=== PATIENT | female | born 2000 | race Hispanic/Latino ===

== ENCOUNTER 2018-02-28 13:49 | Emergency (ER) | payer OTHER | END 2018-02-28 14:49 | disposition home or self-care (01) | LOC: ERS 13:49 | DX: O99.619 Diseases of the digestive system complicating pregnancy, unspecified trimester (principal); K08.89 Other specified disorders of teeth and supporting structures; O99.340 Other mental disorders complicating pregnancy, unspecified trimester; F32.9 Major depressive disorder, single episode, unspecified; Z3A.00 Weeks of gestation of pregnancy not specified | CPT/HCPCS: 99282 ==

== ENCOUNTER 2018-08-29 06:51 | Inpatient (IN) | payer OTHER ==
[2018-08-29] MEDS ORDERED: Ondansetron PF 4 MG/2 ML Vial IVP PRN ×2 (08:24→12:45)
[2018-08-29] MEDS ORDERED: Promethazine HCl 25 MG/ML VIAL IM PRN ×2 (08:24→12:45)
[2018-08-29] MEDS ORDERED: Lidocaine 1% (PF) 30 ML VIAL SC PRN (08:24)
[2018-08-29] MEDS ORDERED: NS / Oxytocin 40 units/1000ml 1,000 ML IV PRN (08:24)
--- NOTE | 2018-08-29 08:36 | PDOC.FPRHP ---
- History of Present Illness Chief Complaint: Contractions History of Present Illness: This is a 17 yo G1 at 38.5 wks by 6wk US who presents to L&D with a cc of contractions. She states they started at 2300 last night and were initially weak and occurred every 15 minutes. At 0300 this AM pt reports contractions increased in pain and occurred at q6 minutes. She reports some increased discharge but no LOF. She denies vaginal bleeding, chest pain, changes in her vision, headaches, or nausea/vomiting. She reports FM. She reports 2 weeks ago she had an ultrasound that estimated the fetus at 9 lbs. - Allergies/Adverse Reactions Allergies Allergy/AdvReac Type Severity Reaction Status Date / Time No Known Allergies Allergy Unverified 08/29/18 07:27 - Home Medications Medication Instructions Recorded Confirmed Type hydrOXYzine [Atarax] 08/29/18 History - History PMHx: PSHx: FHx: Social: - Vital signs BP: [] HR: [] RR: [] Tmax: [] Pox: []% on [] Wt: [] FMR H&P: Upper Level - Plan Date/Time: 08/29/18 0831 I, [], have evaluated this patient and agree with findings/plan as outlined by internet marketing assistant resident. Pertinent changes/additions are listed here.
--- NOTE | 2018-08-29 08:38 | PDOC.FPROB ---
FMR OB H&P: HPI - History of Present Illness Chief Complaint: Contractions Indentification: 17 yo at 38.5 by 6wk US History of Present Illness: This is a 17 yo G1 at 38.5 wks by 6wk US who presents to L&D with a cc of contractions. She states they started at 2300 last night and were initially weak and occurred every 15 minutes. At 0300 this AM pt reports contractions increased in pain and occurred at q6 minutes. She reports some increased discharge but no LOF. She denies vaginal bleeding, chest pain, changes in her vision, headaches, or nausea/vomiting. She reports FM. She reports 2 weeks ago she had an ultrasound that estimated the fetus at 9 lbs. Primary Care Physician: Reuben Eddy DO FMR OB H&P: Current - Care : 1 Para: 0 Gestational age: 38.5 Due date: 09/07/18 Dating Criteria: 6wk US - OB Labs Blood type: unknown (EMR down, no printed records present) RH: unknown Antibody Screen: unknown HIV: unknown RPR: unknown HepBsAg: unknown Gonorrhea: unknown Chlamydia: unknown GBS: positive FMR OB H&P: History - Past Medical History PMH: Morbid obesity, BMI 52 - OB History OB History: none - CLOTH SHRINKING TESTER History CLOTH SHRINKING TESTER History: none - Surgical History Sx History: Tonsillectomy - Social History Social History: Denies CHAYO - Family History Family History: Noncontributory FMR OB H&P: Medications - Current Home Medications: Medication Instructions Recorded Confirmed Type hydrOXYzine [Atarax] 08/29/18 History Allergies/Adverse Reactions: Allergies Allergy/AdvReac Type Severity Reaction Status Date / Time No Known Allergies Allergy Unverified 08/29/18 07:27 FMR OB H&P: ROS - Review of Systems General: denies: fever/chills, weight/appetite/sleep changes Eyes: denies: eye pain, vision changes ENT: denies: nasal congestion, frequent nose bleed Cardiovascular: denies: chest pain, palpitation, claudication Gastrointestinal: denies: abdominal pain, indigestion, nausea, vomiting, diarrhea, constipation Genitourinary (Female): reports: vaginal discharge, vaginal pain, contractions, vaginal pressure. denies: dysuria, vaginal bleeding Musculoskeletal: denies: pain, stiffness, tenderness Neurologic: denies: numbness, syncope Integumentary: denies: itching, rash Hematologic/Lymphatic: denies: prolonged or excessive bleeding Psychological: denies: depression, anxiety FMR OB H&P: Vital Signs - Maternal Vital signs: Vital Signs - First Documented Temp Pulse Resp BP Pulse Ox 98.6 F 100 18 129/82 100 08/29/18 07:10 08/29/18 07:10 08/29/18 07:10 08/29/18 07:10 08/29/18 07:10 - Heart Tones Baseline: 120 Variability: moderate Acceleration: present Deceleration: absent Category: category 1 FMR OB H&P: Physical Exam - Physical Exam General: NAD, awake, alert and oriented Deviation from normal: Morbidly obese HEENT: normocephalic and atraumatic, MMM, grossly normal vision, TM's clear and intact, grossly normal hearing Neck: FROM, no JVD Chest: non-tender to palpation, no lesions Heart: RRR, normal S1/S2, no murmurs/rubs/gallops, pulses present, no edema General: CTAB, no respiratory distress, no wheezing, no retractions Abdomen: soft, gravid, non-tender, bowel sound present Musculoskeletal: normal gait and station, pulses present, FROM in all four extremities Neurological: cranial nerves II through XII intact, sensation to pain,touch and proprioception grossly normal Skin: good tugor, capillary refill <2 seconds Lymphatic: no unusual bruising or bleeding, no purpura Psychiatric: intact recent and remote memory, good judgement and insight, normal mood and affect - Pelvic Exam Vulva: normal hair distribution, appropriate thuy stage, no masses, no lesions , no discharge, no blood SVE: 2/50/-3 Grijalva score: 5 FMR OB H&P: A/P - Problem List (1) Term Current Visit: Yes Status: Acute Code(s): Z34.80 - ENCOUNTER FOR SUPRVSN OF NORMAL , UNSP TRIMESTER (2) Poor patient attendance of care Current Visit: Yes Status: Acute Code(s): O09.30 - SUPRVSN OF PREG W INSUFFICIENT ANTENAT CARE, UNSP TRIMESTER (3) Morbid obesity Current Visit: Yes Status: Acute Code(s): E66.01 - MORBID (SEVERE) OBESITY DUE TO EXCESS CALORIES (4) GBS (group B streptococcus) infection Current Visit: Yes Status: Acute Code(s): A49.1 - STREPTOCOCCAL INFECTION, UNSPECIFIED SITE Disposition: This is a 17 yo G1 at 38.5 wks by 6wk US who presents to L&D with a cc of contractions Term -Admit to L&D -LR 125ml/hr -Cat 1 strip, baseline 120s -SVE /-3 at 0820 -Continue monitoring -Pt desires epidural -PCP Dr. Eddy has been notified of pt and plan -Will recheck in 4 hours and assess for labor augmentation at that time -Will update chart when further records are available GBS positive -Starting penicillin prophylaxis Morbid obesity Poor care -Currently waiting on full records, none sent over and EMR down Discussion: Date/Time: 08/29/18 0837 This H&P was discussed with Dr. Nuñez who agree with the above documentation and plan. Signature: Augustin Caballero DO PGY-1
[2018-08-29 08:56] VITALS: BMI 51.8
[2018-08-29] MEDS ORDERED: Penicillin G Potassium 5 MILL.UNITS in Sodium Chloride 0.9% 100 ML IVPB SCH (09:00)
[2018-08-29] MEDS: Lactated Ringer's 1,000 ML IV SCH ×3 (09:11→23:37)
[2018-08-29 09:20] LABS: Hemoglobin 12.1 g/dL (12.0-16.0); Mean Corpuscular HGB CONC 32.3 g/dL (32.0-36.0); Mean Corpuscular Volume 77.4 fL (78.0-98.0); Mean Platelet Volume 8.6 fL (7.4-10.4); Platelet Count 240 thou/uL (130-400); RBC Distribution Width 14.3 % (11.5-14.5); Red Blood Cell (RBC) Count 4.84 mill/uL (4.00-5.20); White Blood Cell (WBC) Count 13.8 thou/uL (4.8-10.8)
[2018-08-29 09:59] LABS: Syphilis Antibody Nonreactive (Nonreactive); Syphilis Antibody Index 0.03 S/CO (<1.00 Non-Reactive)
[2018-08-29 10:00] LABS: HBSAg Index 0.22 S/CO (0-0.99); Hep B Surf Ag Non-Reactive S/CO (NonReactive)
--- NOTE | 2018-08-29 11:35 | PDOC.LDPN ---
Labor & Delivery Progress Note - Subjective Subjective: painful contractions - Objective Vital signs reviewed and normal: yes Abnormal vital signs: elevated BP during cxns, in between normal 135/86 General: breathing through contractions Dilation: 4 Effacement: 75% Station: -2 FHT: category 1 [place] contractions every: not visible on strip, per nurse q5 min Plan: pitocin for augmentation -: This is a 17 yo G1 at 38.5 wks by 6wk US who presents to L&D with a cc of contractions Term -LR 125ml/hr -Cat 1 strip, baseline 120s -SVE @ 0820: 2/50/-3 -SVE @ 1130: 4/70/-2, cxns q5min, epidural ordered -FHTs cat 1 -Continue monitoring -PCP Dr. Eddy has been notified of pt and plan -Will recheck in 4 hours and assess for labor augmentation at that time -Will update chart when further records are available GBS positive - First dose penicillin given Morbid obesity Poor care -Currently waiting on full records, none sent over and EMR down
[2018-08-29] MEDS ORDERED: Fentanyl 4 mcg/Bup 0.1% Cadd 100 ML ONE ×2 (11:52→20:49)
[2018-08-29] MEDS ORDERED: Naloxone HCl 0.4 mg/ml Vial IVP PRN ×2 (12:45)
[2018-08-29] MEDS ORDERED: ePHEDrine/0.9% NaCl/PF SYRINGE 50 mg/10 ml SLOW IVP PRN (12:45)
[2018-08-29] MEDS ORDERED: Acetaminophen 325 MG TAB PO PRN (12:45)
[2018-08-29] MEDS ORDERED: Eucerin (Mineral Oil/Petrolatum,White) 30 gm Jar TOP PRN (12:45)
[2018-08-29] MEDS ORDERED: Communication Order-Pharmacy FS SCH (12:45)
[2018-08-29] MEDS ORDERED: Lactated Ringer's 500 ML IV PRN (12:45)
[2018-08-29] MEDS ORDERED: Fentanyl 4 mcg/Bupivacaine 0.1% Cassette 100 ML EPIDURAL SCH (12:45)
[2018-08-29] MEDS ORDERED: diphenhydrAMINE 50 MG/ML VIAL IVP PRN (12:45)
[2018-08-29] MEDS: Penicillin G 2.5 MILL.units 2.5 MILL.UNITS in Premix Bag 1 BAG IVPB SCH ×3 (12:55→20:53)
--- NOTE | 2018-08-29 15:45 | PDOC.LDPN ---
Labor & Delivery Progress Note - Subjective Subjective: comfortable - Objective Vital signs reviewed and normal: yes General: NAD, resting Dilation: 5 Effacement: 75% Station: -2 FHT: category 1, variability present - Assessment (1) GBS (group B streptococcus) infection Code(s): A49.1 - STREPTOCOCCAL INFECTION, UNSPECIFIED SITE Current Visit: Yes Status: Acute (2) Morbid obesity Code(s): E66.01 - MORBID (SEVERE) OBESITY DUE TO EXCESS CALORIES Current Visit : Yes Status: Acute (3) Poor patient attendance of care Code(s): O09.30 - SUPRVSN OF PREG W INSUFFICIENT ANTENAT CARE, UNSP TRIMESTER Current Visit: Yes Status: Acute (4) Term Code(s): Z34.80 - ENCOUNTER FOR SUPRVSN OF NORMAL , UNSP TRIMESTER Current Visit: Yes Status: Acute Plan: labor augmentation, pitocin for augmentation -: This is a 17 yo G1 at 38.5 wks by 6wk US who presents to L&D with a cc of contractions Term -LR 125ml/hr -FHTs Cat 1 strip, baseline 120s -SVE @ 0820: 2/50/-3 -SVE @ 1130: 4/70/-2, cxns q5min, epidural placed -SVE @ 1300: 5/70/-2 -SVE @ 1530: 5/80/-2, cxns q5-6 min., started pitocin -Continue monitoring -PCP Dr. Eddy has been notified of pt and plan -Will recheck in 4 hours and assess for labor augmentation at that time -Will update chart when further records are available GBS positive - Second dose penicillin given Morbid obesity Poor care -Currently waiting on full records, none sent over and EMR down
[2018-08-29] MEDS ORDERED: NS w/ Oxytocin 10 units 500 ML ONE (16:16)
--- NOTE | 2018-08-29 17:27 | PDOC.LDPN ---
Labor & Delivery Progress Note - Subjective Subjective: comfortable - Objective Vital signs reviewed and normal: yes General: NAD, resting Uterine fundus: palpable contractions SVE: 5/80/-1 Dilation: 5 Effacement: 75% Station: -1 FHT: category 1, variability present [place] contractions every: 2-3 min Other exam findings: bulging bag - Assessment (1) GBS (group B streptococcus) infection Code(s): A49.1 - STREPTOCOCCAL INFECTION, UNSPECIFIED SITE Current Visit: Yes Status: Acute (2) Morbid obesity Code(s): E66.01 - MORBID (SEVERE) OBESITY DUE TO EXCESS CALORIES Current Visit : Yes Status: Acute (3) Poor patient attendance of care Code(s): O09.30 - SUPRVSN OF PREG W INSUFFICIENT ANTENAT CARE, UNSP TRIMESTER Current Visit: Yes Status: Acute (4) Term Code(s): Z34.80 - ENCOUNTER FOR SUPRVSN OF NORMAL , UNSP TRIMESTER Current Visit: Yes Status: Acute Plan: continue plan of care, pitocin for augmentation -: This is a 17 yo G1 at 38.5 wks by 6wk US who presents to L&D with a cc of contractions Term -LR 125ml/hr -FHTs Cat 1 strip, baseline 120s -SVE @ 0820: 2/50/-3 -SVE @ 1130: 4/70/-2, cxns q5min, epidural placed -SVE @ 1300: 5/70/-2 -SVE @ 1530: 5/80/-2, cxns q5-6 min., started pitocin -SVE @ 1720: 5/80/-1, cxn q2-3 min -Continue monitoring -PCP Dr. Eddy has been notified -Will update chart when further records are available GBS positive - Third dose penicillin given Morbid obesity Poor care -Currently waiting on full records, none sent over and EMR down
--- NOTE | 2018-08-29 19:42 | PDOC.LDPN ---
Labor & Delivery Progress Note - Subjective Subjective: comfortable - Objective Vital signs reviewed and normal: yes General: NAD Uterine fundus: non tender Dilation: 6 Station: -2 [place] contractions every: 2-4min AROM: clear fluid IUPC placed: yes FSE placed: yes Resuscitative measures: other Plan: continue plan of care -: This is a 17 yo G1 at 38.5 wks by 6wk US who presents to L&D with a cc of contractions Term -LR 125ml/hr -FHTs Cat 1 strip, baseline 120s -SVE @ 0820: 2/50/-3 -SVE @ 1130: 4/70/-2, cxns q5min, epidural placed -SVE @ 1300: 5/70/-2 -SVE @ 1530: 5/80/-2, cxns q5-6 min., started pitocin -SVE @ 1720: 5/80/-1, cxn q2-3 min -SVE @ 1900: 6/100/-2, ctx q2-4min, FSE and IUPC placed -Continue monitoring GBS positive - Third dose penicillin given Morbid obesity Poor care -Currently waiting on full records, none sent over and EMR down
--- NOTE | 2018-08-29 21:37 | PDOC.LDPN ---
Labor & Delivery Progress Note - Subjective Subjective: comfortable - Objective Vital signs reviewed and normal: yes General: NAD Uterine fundus: non tender Dilation: 6 Effacement: 100% Station: -2 FHT: category 1 [place] contractions every: 2-3 min Plan: continue plan of care, labor augmentation -: This is a 17 yo G1 at 38.5 wks by 6wk US who presents to L&D with a cc of contractions Term -LR 125ml/hr -FHTs Cat 1 strip, baseline 120s -SVE @ 0820: 2/50/-3 -SVE @ 1130: 4/70/-2, cxns q5min, epidural placed -SVE @ 1300: 5/70/-2 -SVE @ 1530: 5/80/-2, cxns q5-6 min., started pitocin -SVE @ 1720: 5/80/-1, cxn q2-3 min -SVE @ 1900: 6/100/-2, ctx q2-4min, FSE and IUPC placed -SVE @ 2130: 6/100/-2, ctx 2-3min, CAT I, Pit at 10 -Continue monitoring, will recheck in two hours GBS positive - Third dose penicillin given Morbid obesity Poor care -Currently waiting on full records, none sent over and EMR down
--- NOTE | 2018-08-29 23:31 | PDOC.LDPN ---
Labor & Delivery Progress Note - Subjective Subjective: comfortable, vaginal pressure - Objective Vital signs reviewed and normal: yes General: NAD, resting Uterine fundus: non tender Dilation: 6 Effacement: 100% Station: -2 FHT: category 1 [place] contractions every: 2-3min Plan: other -: This is a 17 yo G1 at 38.5 wks by 6wk US who presents to L&D with a cc of contractions Term -LR 125ml/hr -FHTs Cat 1 strip, baseline 120s -SVE @ 0820: 2/50/-3 -SVE @ 1130: 4/70/-2, cxns q5min, epidural placed -SVE @ 1300: 5/70/-2 -SVE @ 1530: 5/80/-2, cxns q5-6 min., started pitocin -SVE @ 1720: 5/80/-1, cxn q2-3 min -SVE @ 1900: 6/100/-2, ctx q2-4min, FSE and IUPC placed -SVE @ 2130: 6/100/-2, ctx 2-3min, CAT I, Pit at 10 -SVE @ 2330: 6/100/-2, ctx 2-3min, CAT I, Pit at 10 -will discuss w/ dr. barron possibility of c section GBS positive - Third dose penicillin given Morbid obesity Poor care -Currently waiting on full records, none sent over and EMR down
[2018-08-30] MEDS ORDERED: MORPHINE 5 MG/10 ML PF VIAL ONE (00:01)
[2018-08-30] MEDS ORDERED: PHENYLEPHRINE-NS 100 MCG/ML 10 ML SYRINGE ONE (00:02)
[2018-08-30] MEDS ORDERED: Ondansetron PF 4 MG/2 ML Vial ONE ×2 (00:02→11:27)
[2018-08-30] MEDS ORDERED: Oxytocin 10 UNITS/ML VIAL ONE ×3 (00:02→00:48)
[2018-08-30] MEDS ORDERED: CEFAZOLIN 1 GM VIAL ONE (00:20)
[2018-08-30] MEDS ORDERED: Midazolam HCl 2 mg/2 ml Vial ONE (00:29)
[2018-08-30] MEDS ORDERED: Ondansetron PF 4 MG/2 ML Vial IVP PRN ×2 (01:01→03:57)
[2018-08-30] MEDS ORDERED: Ketorolac Tromethamine 30 MG/ML VIAL IVP PRN (01:01)
[2018-08-30] MEDS ORDERED: Eucerin (Mineral Oil/Petrolatum,White) 30 gm Jar TOP PRN (01:01)
[2018-08-30] MEDS ORDERED: Ondansetron HCl/PF 4 MG/2 ML Vial IVP PRN (01:01)
[2018-08-30] MEDS ORDERED: Promethazine HCl 25 MG/ML VIAL IM PRN (01:01)
[2018-08-30] MEDS ORDERED: Promethazine HCl 25 MG SUPP PR PRN (01:01)
[2018-08-30] MEDS ORDERED: Naloxone HCl 0.4 mg/ml Vial IV PRN (01:01)
[2018-08-30] MEDS ORDERED: diphenhydrAMINE 50 MG/ML VIAL IVP PRN (01:01)
[2018-08-30] MEDS ORDERED: L&D-Morphine 4 MG/ML VIAL SLOW IVP PRN (01:01)
[2018-08-30] MEDS ORDERED: Meperidine HCl/PF 25 MG/ML VIAL SLOW IVP PRN (01:01)
[2018-08-30] MEDS ORDERED: HYDROmorphone 2 MG/ML VIAL SLOW IVP PRN (01:01)
[2018-08-30] MEDS ORDERED: Naloxone HCl 0.4 mg/ml Vial IVP PRN ×2 (01:01)
[2018-08-30 01:04] LABS: Actual Bicarbonate (HCO3a) 23.1 mEq/L (22-28); Base Excess (BEa) -8.5 mEq/L (-2.0 to +3.0)
[2018-08-30 01:07] LABS: Actual Bicarbonate (HCO3v) 24 mEq/L (22-28)
[2018-08-30 01:09] LABS: pH (Cord, venous) 7.22 (7.32-7.43)
[2018-08-30] MEDS ORDERED: Ketorolac Tromethamine 30 MG/ML VIAL IVP SCH (01:15)
[2018-08-30] MEDS ORDERED: Communication Order-Pharmacy FS SCH (01:15)
[2018-08-30] MEDS ORDERED: Bicitra 30 ML UDCUP PO SCH (02:00)
[2018-08-30] MEDS: Lactated Ringer's 1,000 ML IV SCH ×2 (02:04→18:29)
[2018-08-30] MEDS ORDERED: CEFAZOLIN 3 GM in Sodium Chloride 0.9% 100 ML IVPB SCH (02:15)
--- NOTE | 2018-08-30 03:16 | OP ---
DATE OF PROCEDURE: 08/30/2018 LOCATION: [place], [place]. PRIMARY SURGEON: Phuc Eddy DO INSPECTOR WATCH ASSEMBLY SURGEONS: 1. Umu Nuñez MD. 2. Consuelo Danielson MD. OB HOSPITALIST: Dr. Cachorro Guerrero. ATTENDING SURGEON: Melly Berger MD PROCEDURE: Primary low-transverse section. PREOPERATIVE DIAGNOSES: 1. Term intrauterine . 2. Arrest of labor. 3. Morbid obesity. 4. Inconsistent care. 5. Estimated weight greater than 4000 g. 6. GBS positive. POSTOPERATIVE DIAGNOSES: 1. Term intrauterine , delivered. 2. Primary low-transverse section. 3. Morbid obesity. 4. Inconsistent care. 5. GBS positive. ANESTHESIA: Epidural. INDICATIONS FOR PROCEDURE: The patient is a 17-year-old G1 and P0, now 1-0-0-1 female at 38 and 6 weeks gestation, who presented to L and D for onset of labor and contractions. The patient was eventually started on Pitocin for augmentation of labor, and IUPC and scalp electrode were placed, which showed adequate contractions on Pitocin, and the patient remained 6 cm dilated, 100% effaced, and -2 station for approximately 6 hours. PROCEDURE IN DETAIL: After risks, benefits, and alternatives were explained to the patient, she gave informed consent. Preoperative antibiotics included Ancef 3 g IV. The patient was taken to the operating room and spinal epidural was initiated. She was placed in the supine position with a left tilt and prepped and draped in usual sterile fashion. A Pfannenstiel incision was made with a scalpel and carried down to the level of fascia which was sharply nicked. The fascial cut was extended bilaterally with Marinelli scissors. Inferior and superior edges of the fascial edges were elevated with Emeli clamps, and the underlying rectus muscles were bluntly dissected free. The recti were divided digitally and retracted manually. Peritoneum was entered bluntly and retracted manually. An extra large Santana O was then attempted to be placed, however, it was felt that this gave inadequate space for delivery secondary to maternal body habitus and as such, the Santana O was removed and bladder blade was placed. A low-transverse score was made with a scalpel and the uterus was entered midline with a scalpel. Clear fluid was seen. Hysterotomy was extended manually. The infant was noted to be ROP and as such a difficult extraction. The was maneuvered into the OP position, and the vacuum was placed on the scalp. After one attempt with the vacuum, the was delivered easily with vacuum assist and fundal pressure. The mouth and nares were bulb suctioned. The cord was clamped and cut, and cord gases obtained. A normal male infant was handed to the waiting nurse. Cord blood was obtained in addition to cord gas. Placenta was spontaneously delivered and found to be intact with three vessel cord and discarded. Uterus was externalized and the endometrium was curetted with a dry lap, the bladder blade was placed, and the uterus was closed with a running locking 0 Monocryl followed by a running nonlocking 0 Monocryl imbricating layer. Following this, hemostasis was noted. The abdomen was suctioned free of clots, and the uterus was internalized and the hysterotomy was again noted to be hemostatic. The peritoneum was closed with a running nonlocking 3-0 Vicryl suture. Fascia was closed with a running nonlocking 0 Vicryl suture. Subcutaneous tissue was irrigated, and bleeders were cauterized with Bovie cauterization. The skin was approximated with ping and a wound VAC was placed. All counts were correct. The patient tolerated the procedure well and was taken to recovery room in stable condition. QUANTITATED BLOOD LOSS: 781 mL. COMPLICATIONS: None. SPECIMENS: Cord blood sent to lab for blood type. Cord gas obtained. FINDINGS: 1. Grossly normal male infant with Apgars of 7 and 9 at 1 and 5 minutes respectively. 2. Grossly normal placenta with 3-vessel cord discarded. DRAINS: Darnell to gravity draining clear urine. Job ID: [id number] [facility]
[2018-08-30] MEDS ORDERED: Lanolin Ointment 7 GM TUBE TOP PRN (03:57)
[2018-08-30] MEDS ORDERED: Simethicone Chewable 80 MG TAB PO PRN (03:57)
[2018-08-30] MEDS ORDERED: Bisacodyl 10 MG SUPP PR PRN (03:57)
[2018-08-30] MEDS ORDERED: Ketorolac Tromethamine 30 MG/ML VIAL ONE (03:58)
[2018-08-30] MEDS: Penicillin G 2.5 MILL.units 2.5 MILL.UNITS in Premix Bag 1 BAG IVPB SCH (05:36)
--- NOTE | 2018-08-30 06:52 | PDOC.EVN ---
Event Note - Event Note Event Note: I was present, assisted, and supervised the 1* LCT C/S for this 17 yo @ 39 2/7 weeks for failure to progress. Viable male infant delivered in vtx presentation, OP position with vacuum assistance (1 application and pull). Apgars 7/9. Residents: [place].
--- NOTE | 2018-08-30 07:56 | PDOC.PP ---
Post Progress Note Post Day #: 0 Subjective: 17 yo G [id number]-->1001 s/p pLTCS 2/2 AOL. Pt is approx 5 hrs PP and is doing well. Denies pain, denies NVDC, cp, sob, headache. Eubanks is in place in addition to wound vac. PO intake tolerated: no Flatus: no Ambulation: no Vital Signs (12 hours) Temp Pulse Resp BP Pulse Ox 08/30/18 06:20 98.3 F 94 18 101/59 L 97 08/30/18 05:20 98.3 F 101 H 18 109/57 L 96 08/30/18 04:20 98.3 F 92 18 107/57 L 95 08/30/18 04:15 95 Weight Weight 136.985 kg - Physical Examination General: NAD Cardiovascular: no m/r/g, RRR Respiratory: clear to auscultation bilaterally, non-labored breathing Abdominal: + bowel sounds, lochia, no distention, appropriately TTP Fundus firm & at: difficult to assess 2/2 habitus Extremities: negative homans (B) Deviation from normal: wound vac in place Neurological: no gross focal deficits Psychiatric: A&Ox3, normal affect Result Diagrams: 08/29/18 09:03 Additional Labs: Post Labs Blood Type O POSITIVE 08/29/18 09:03 Hep Bs Antigen Non-Reactive S/CO (NonReactive) 08/29/18 09:03 (1) S/P primary low transverse Code(s): Z98.891 - HISTORY OF UTERINE SCAR FROM PREVIOUS SURGERY Status: Acute (2) Morbid obesity Code(s): E66.01 - MORBID (SEVERE) OBESITY DUE TO EXCESS CALORIES Status: Acute (3) Poor patient attendance of care Code(s): O09.30 - SUPRVSN OF PREG W INSUFFICIENT ANTENAT CARE, UNSP TRIMESTER Status: Acute - Assessment/Plan 1) s/p p LTCS post op 5 hrs - pt doing well - will remove eubanks and ambulate 12 hours PP - ADAT - pain control with saroj ibuprofen and tylenol w/ [place] 5/325 for breakthrough pain - currently reports no pain - Pt breast feeding primip, consult 2) Morbid obesity - wound vac to remain in place - ping to remain in place and removed no earlier than 5 days PP 3) Late/inconsistent care - labs WNL Dispo: stable, cont to monitor vitals and pain. Attempt ambulation and eubanks removal later and ADAT.
[2018-08-30] MEDS: Docusate Calcium (SURFAK) 240 MG CAP PO SCH ×2 (08:11→22:05)
[2018-08-30] MEDS: Prenatal Vitamin 1 TAB PO SCH (08:12)
[2018-08-30] MEDS ORDERED: Adacel (T-DAP) 0.5 ML SYRINGE IM ONE (09:00)
[2018-08-30] MEDS: Ferrous Sulfate 325 MG TAB PO SCH ×2 (11:15→22:06)
[2018-08-30] MEDS: HYDROcodone/Acetaminophen 5/325 mg Tablet PO PRN ×3 (13:15→23:05)
[2018-08-30] MEDS: Ibuprofen 800 MG TAB PO SCH ×2 (14:46→22:05)
[2018-08-31] MEDS: Lactated Ringer's 1,000 ML IV SCH ×3 (01:03→21:21)
[2018-08-31] MEDS: HYDROcodone/Acetaminophen 5/325 mg Tablet PO PRN ×3 (04:05→21:19)
[2018-08-31] MEDS: Ibuprofen 800 MG TAB PO SCH ×3 (06:26→21:19)
[2018-08-31] MEDS: Enoxaparin Sodium 40 MG/0.4 ML SYRINGE SC SCH (06:26)
[2018-08-31 06:56] LABS: Hemoglobin 9.4 g/dL (12.0-16.0); Mean Corpuscular HGB CONC 32.2 g/dL (32.0-36.0); Mean Corpuscular Hemoglobin 25.4 pg (25.0-35.0); Mean Platelet Volume 8.2 fL (7.4-10.4); Platelet Count 191 thou/uL (130-400); RBC Distribution Width 14.5 % (11.5-14.5); Red Blood Cell (RBC) Count 3.72 mill/uL (4.00-5.20); White Blood Cell (WBC) Count 11.5 thou/uL (4.8-10.8)
--- NOTE | 2018-08-31 09:04 | PDOC.PP ---
Post Progress Note Post Day #: 2 Subjective: 17 -->1001 post op 38 hrs s/p pLTCS 2/2 arrest of labor. Pt doing well, ambulating, tolerating PO, micturating and reports 1bm. Some left lateral incisional discomfort with movement but otherwise denies fever, chills, erythema , CP, headache, SOB. PO intake tolerated: yes Flatus: yes Ambulation: yes Vital Signs (12 hours) Temp Pulse Resp BP Pulse Ox 08/31/18 08:19 98.4 F 91 20 117/67 98 08/31/18 04:05 97.5 F L 95 18 139/59 L 08/30/18 23:55 97.8 F 98 18 131/63 Weight Weight 136.985 kg - Physical Examination General: NAD Cardiovascular: no m/r/g, RRR Respiratory: clear to auscultation bilaterally, non-labored breathing Abdominal: + bowel sounds, no distention, appropriately TTP Deviation from normal: wound vac in place Neurological: no gross focal deficits Psychiatric: A&Ox3 Result Diagrams: 08/31/18 06:25 Additional Labs: Post Labs Blood Type O POSITIVE 08/29/18 09:03 Hep Bs Antigen Non-Reactive S/CO (NonReactive) 08/29/18 09:03 (1) S/P primary low transverse Code(s): Z98.891 - HISTORY OF UTERINE SCAR FROM PREVIOUS SURGERY Status: Acute (2) Morbid obesity Code(s): E66.01 - MORBID (SEVERE) OBESITY DUE TO EXCESS CALORIES Status: Acute (3) Poor patient attendance of care Code(s): O09.30 - SUPRVSN OF PREG W INSUFFICIENT ANTENAT CARE, UNSP TRIMESTER Status: Acute - Assessment/Plan 1) s/p pLTCS - cont pain control - Hgb dropped but no evidence of continued bleeding - cot to monitor, cont lovenox PPX for now 2)inconsistent PNC - will consult CM to assure pt has adequate support at home and is educated on various community resources - pt wishes to try and cont breast feeding - has breast pump in room, will give script prior to discharge 3) Morbid obesity - cont DVT PPX - monitor for evidence of cont bleeding Dispo: stable 36 hrs post op pt doing well. Concern with young primip with poor attendance of surveillance as such will consult CM.
[2018-08-31] MEDS: Prenatal Vitamin 1 TAB PO SCH (10:21)
[2018-08-31] MEDS: Docusate Calcium (SURFAK) 240 MG CAP PO SCH ×2 (10:22→21:18)
[2018-08-31] MEDS: Ferrous Sulfate 325 MG TAB PO SCH ×2 (10:23→21:19)
[2018-09-01] MEDS: Lactated Ringer's 1,000 ML IV SCH ×3 (01:06→19:29)
[2018-09-01] MEDS: HYDROcodone/Acetaminophen 5/325 mg Tablet PO PRN ×3 (04:44→16:20)
[2018-09-01] MEDS: Ibuprofen 800 MG TAB PO SCH ×3 (06:19→22:08)
[2018-09-01] MEDS: Enoxaparin Sodium 40 MG/0.4 ML SYRINGE SC SCH (06:19)
[2018-09-01] MEDS: Prenatal Vitamin 1 TAB PO SCH (09:43)
[2018-09-01] MEDS: Ferrous Sulfate 325 MG TAB PO SCH ×2 (09:43→22:08)
[2018-09-01] MEDS: Docusate Calcium (SURFAK) 240 MG CAP PO SCH ×2 (09:43→22:07)
--- NOTE | 2018-09-01 12:54 | PDOC.PP ---
Post Progress Note Post Day #: 2 Subjective: 17 yo -->1 s/p pLTCS pp day 2. Pt denies headache, fever, chills, NVDC, CP, SOB. Reports vaginal bleeding normal period amount. Pt currently denies pain. PO intake tolerated: yes Flatus: yes Ambulation: yes Vital Signs (12 hours) Temp Pulse Resp BP Pulse Ox 09/01/18 08:23 98.1 F 87 20 100/59 L 98 09/01/18 04:40 98.2 F 92 18 120/58 L Weight Weight 136.985 kg - Physical Examination General: NAD Deviation from normal: Morbidly obese Cardiovascular: no m/r/g, RRR Respiratory: clear to auscultation bilaterally, non-labored breathing Abdominal: + bowel sounds, lochia, no distention, appropriately TTP Deviation from normal: wound vac in place Neurological: no gross focal deficits Psychiatric: A&Ox3, normal affect Result Diagrams: 08/31/18 06:25 Additional Labs: Post Labs Blood Type O POSITIVE 08/29/18 09:03 Hep Bs Antigen Non-Reactive S/CO (NonReactive) 08/29/18 09:03 (1) S/P primary low transverse Code(s): Z98.891 - HISTORY OF UTERINE SCAR FROM PREVIOUS SURGERY Status: Acute (2) Morbid obesity Code(s): E66.01 - MORBID (SEVERE) OBESITY DUE TO EXCESS CALORIES Status: Acute (3) Poor patient attendance of care Code(s): O09.30 - SUPRVSN OF PREG W INSUFFICIENT ANTENAT CARE, UNSP TRIMESTER Status: Acute - Assessment/Plan 1) s/p pLTCS - C[place] PRN only for severe breakthrough pain - cont Ibuprofen saroj and tylenol PRN for mild to moderate pain 2) inconsistent PNC - pt seen by CM, safe for DC and resources given for WIC - plans to see [facility] for PP care 3) Morbid obesity - cont DVT PPX - monitor for evidence of cont bleeding Dispo: Pt stable, primip s/p pLTCS will plan to keep patient one more day and DC to home tomorrow. Wound vac to remain in place. De-escalate narcotic pain control.
[2018-09-02] MEDS: HYDROcodone/Acetaminophen 5/325 mg Tablet PO PRN ×3 (01:27→13:02)
[2018-09-02] MEDS: Lactated Ringer's 1,000 ML IV SCH ×2 (02:04→08:49)
[2018-09-02] MEDS: Ibuprofen 800 MG TAB PO SCH ×2 (06:42→13:02)
[2018-09-02] MEDS ORDERED: Acetaminophen 325 MG TAB PO PRN (07:16)
[2018-09-02 08:15] VITALS: BP 113/54; TEMP 97.6
[2018-09-02] MEDS: Enoxaparin Sodium 40 MG/0.4 ML SYRINGE SC SCH (08:48)
[2018-09-02] MEDS: Docusate Calcium (SURFAK) 240 MG CAP PO SCH (08:49)
[2018-09-02] MEDS: Ferrous Sulfate 325 MG TAB PO SCH (08:49)
[2018-09-02] MEDS: Prenatal Vitamin 1 TAB PO SCH (08:49)
--- NOTE | 2018-09-02 09:26 | PDOC.PP ---
Post Progress Note Post Day #: 3 Subjective: 17 yo ->1 pp day 3 s/p pLTCS. MADINA overnight. Pt has no complaints. She is anxious about the prospect of pain but denies pain currently. We discussed saroj ibuprofen and tylenol for pain control at home instead of PRN dosing. Pt agreeable. PO intake tolerated: yes Flatus: yes Ambulation: yes Vital Signs (12 hours) Temp Pulse Resp BP Pulse Ox 09/02/18 08:14 97.6 F 80 20 113/54 L 98 09/01/18 21:42 97.9 F 89 20 133/64 98 Weight Weight 136.985 kg - Physical Examination General: NAD Cardiovascular: no m/r/g, RRR Respiratory: clear to auscultation bilaterally, non-labored breathing Abdominal: + bowel sounds, no distention, appropriately TTP Extremities: negative homans (B) Deviation from normal: wound vac in place Neurological: no gross focal deficits Result Diagrams: 08/31/18 06:25 Additional Labs: Post Labs Blood Type O POSITIVE 08/29/18 09:03 Hep Bs Antigen Non-Reactive S/CO (NonReactive) 08/29/18 09:03 (1) S/P primary low transverse Code(s): Z98.891 - HISTORY OF UTERINE SCAR FROM PREVIOUS SURGERY Status: Acute (2) Morbid obesity Code(s): E66.01 - MORBID (SEVERE) OBESITY DUE TO EXCESS CALORIES Status: Acute (3) Poor patient attendance of care Code(s): O09.30 - SUPRVSN OF PREG W INSUFFICIENT ANTENAT CARE, UNSP TRIMESTER Status: Acute - Assessment/Plan 1) s/p pLTCS - plan for DC to home today and wound vac/ping to remain in place - tylenol and ibuprofen saroj for pain control - cont PNV and Iron - colace/surfak bowel regimen - desires depo for pp cc 2) inconsistent PNC - pt seen by CM, safe for DC and resources given for WIC - plans to see [facility] for PP care 3) Morbid obesity - cont DVT PPX - monitor for evidence of cont bleeding Dispo: Pt stable, will DC to home today and have pt f/u with [facility].
== END 2018-09-02 15:05 | disposition home or self-care (01) | DRG 787 ==
LOC: L&D/OP 06:51 → L&D 08:29 → 3SW 08-30 04:14
PROVIDERS: ADMIT Family Medicine; ATTEND Family Medicine
PROC: 10907ZC Drainage of Amniotic Fluid, Therapeutic from Products of Conception, Via Natural or Artificial Opening (ICD-10-PCS; 2018-08-29)
PROC: 3E033VJ Introduction of Other Hormone into Peripheral Vein, Percutaneous Approach (ICD-10-PCS; 2018-08-29)
PROC: 10D00Z1 Extraction of Products of Conception, Low, Open Approach (ICD-10-PCS; principal; 2018-08-30)
PROC: 10D07Z6 Extraction of Products of Conception, Vacuum, Via Natural or Artificial Opening (ICD-10-PCS; 2018-08-30)
DX: O62.1 Secondary uterine inertia (principal); O98.82 Other maternal infectious and parasitic diseases complicating childbirth; Z3A.38 38 weeks gestation of pregnancy; Z37.0 Single live birth; O99.214 Obesity complicating childbirth; E66.01 Morbid (severe) obesity due to excess calories; B95.1 Streptococcus, group B, as the cause of diseases classified elsewhere
CPT/HCPCS: 36415; 51702; 82805; 85027; 86780; 86850; 86900; 86901; 87340; 99285; J0690; J1650; J1885; J2250; J2270; J2405; J2540; J2590; J7050